=== PATIENT | female | born 1990 | race Two or more races ===

== ENCOUNTER 2016-12-16 11:27 | Emergency (ER) | payer SELFPAY ==
[~2016-12-16] VITALS: Ht 162.6 cm; Wt 53.1 kg
[2016-12-16 11:53] LABS: BASOPHILS # (AUTO) 0.1 /CMM (0.0-0.2); BASOPHILS % (AUTO) 0.9 % (0.0-2.0); DIFF TOTAL % 100 %; EOSINOPHILS # (AUTO) 0.1 /CMM (0.0-0.7); EOSINOPHILS % (AUTO) 0.8 % (0.0-6.0); HEMATOCRIT 40 % (33-45); HEMOGLOBIN 13.7 g/dL (11.5-14.8); LYMPHOCYTES # (AUTO) 0.9 /CMM (0.8-4.8); LYMPHOCYTES % (AUTO) 11.5 % (20.0-44.0); MEAN CORPUSCULAR HEMOGLOBIN 30 PG (26.0-33.0); MEAN CORPUSCULAR HGB CONC 34 g/dl (31.0-36.0); MEAN CORPUSCULAR VOLUME 88 fL (82-100); MONOCYTES # (AUTO) 0.3 /CMM (0.1-1.30); MONOCYTES % (AUTO) 3.4 % (2.0-12.0); NEUTROPHILS # (AUTO) 6.9 /CMM (1.8-8.9); NEUTROPHILS % (AUTO) 83.4 % (43.0-81.0); PLATELET COUNT (AUTO) 179 /CMM (150-450); WHITE BLOOD COUNT (AUTO) 8.3 K/uL (4.3-11.0)
[2016-12-16 12:06] LABS: CALCIUM, SERUM 8.3 mg/dL (8.5-10.1); CREATININE 0.7 mg/dL (0.6-1.3); POTASSIUM 3.6 mmol/L (3.5-5.1)
[2016-12-16 12:12] LABS: INR 0.95 (0.87-1.13)
[2016-12-16 12:44] VITALS: BP 129/70
== END 2016-12-16 12:45 | disposition home or self-care (01) ==
LOC: ER 11:30 → EDSEX 11:30 → ER 12:45
DX: N92.1 Excessive and frequent menstruation with irregular cycle (principal); F41.9 Anxiety disorder, unspecified
CPT/HCPCS: 36415; 76856; 80048; 84702; 84703; 85025; 85730; 86850; 99285; A4606; Z7610

== ENCOUNTER 2017-04-23 00:39 | Emergency (ER) | payer OTHER ==
[~2017-04-23] VITALS: Ht 162.6 cm; Wt 57.6 kg
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
[2017-04-23] MEDS ORDERED: FLUORESCEIN SODIUM OPHTH 1 EA STRIP ONE (01:33)
[2017-04-23] MEDS ORDERED: TETRACAINE HCL/PF 0.5% UD 2 ML BOTTLE ONE (01:33)
--- NOTE | 2017-04-23 01:35 | NUR ---
DR. PEGUERO AT BEDSIDE FOR EVAL.
--- NOTE | 2017-04-23 01:48 | NUR ---
PT TO CT.
--- NOTE | 2017-04-23 01:56 | NUR ---
PT RETURNED FROM CT.
[2017-04-23] MEDS ORDERED: FLUORESCEIN SODIUM OPHTH 1 EA STRIP OP ONE (02:00)
[2017-04-23] MEDS ORDERED: TETRACAINE HCL/PF 0.5% UD 2 ML BOTTLE RIGHTEYE ONE (02:00)
[2017-04-23] MEDS ORDERED: ACETAMINOPHEN ES 500 MG TABLET ONE (02:13)
--- NOTE | 2017-04-23 02:18 | NUR ---
VERBAL ORDERS PER DR. PEGUERO TO GIVE TYLENOL 1GM PO NOW ONE TIME. PT MEDICATED ORDERED.
--- NOTE | 2017-04-23 02:19 | NUR ---
DR. PEGUERO AT BEDSIDE FOR EYE EXAM.
[2017-04-23] MEDS ORDERED: MORPHINE SULFATE INJ 4 MG/ML DISP.SYRIN SQ ONE (02:30)
[2017-04-23] MEDS ORDERED: ONDANSETRON 4 MG TAB.RAPDIS SL ONE (02:30)
[2017-04-23] MEDS ORDERED: ACETAMINOPHEN 325 MG TABLET PO ONE (02:30)
[2017-04-23] MEDS ORDERED: CYCLOPENTOLATE 1% OPHTHALMIC 2 ML BOTTLE ONE (03:14)
[2017-04-23] MEDS ORDERED: GENTAMICIN OPTH SOLN 0.3% 5 ML BOTTLE OP ONE (03:30)
[2017-04-23] MEDS ORDERED: GENTAMICIN OPTH SOLN 0.3% 5 ML BOTTLE ONE (03:30)
[2017-04-23] MEDS ORDERED: CYCLOPENTOLATE 1% OPHTHALMIC 2 ML BOTTLE OP ONE (03:30)
--- NOTE | 2017-04-23 03:42 | NUR ---
Patient discharged to home in stable condition. Written and verbal after care instructions given. Patient verbalizes understanding of instruction. ambulatory with a steady gait. instructed pt not to drive. pt verbalize understanding.
[2017-04-23 03:43] VITALS: BP 116/78
== END 2017-04-23 03:45 | disposition home or self-care (01) ==
LOC: ER 00:42
DX: S05.01XA Injury of conjunctiva and corneal abrasion without foreign body, right eye, initial encounter (principal); H20.9 Unspecified iridocyclitis; Y04.2XXA Assault by strike against or bumped into by another person, initial encounter; Y93.89 Activity, other specified; Y92.89 Other specified places as the place of occurrence of the external cause; Y99.8 Other external cause status
CPT/HCPCS: 70480; 99284; A4606; Z7610

== ENCOUNTER 2017-04-26 21:18 | Emergency (ER) | payer OTHER ==
[~2017-04-26] VITALS: Ht 162.6 cm; Wt 54.4 kg
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
[2017-04-26] MEDS ORDERED: TETRACAINE HCL/PF 0.5% UD 2 ML BOTTLE ONE (22:15)
[2017-04-26] MEDS ORDERED: FLUORESCEIN SODIUM OPHTH 1 EA STRIP ONE (22:15)
[2017-04-26] MEDS: FLUORESCEIN SODIUM OPHTH 1 EA STRIP OP ONE (22:27)
[2017-04-26] MEDS: TETRACAINE HCL/PF 0.5% UD 2 ML BOTTLE RIGHTEYE ONE (22:28)
--- NOTE | 2017-04-26 22:35 | NUR ---
MAURO Cantrell at bedside for eye exam.
--- NOTE | 2017-04-26 23:04 | NUR ---
pt ambulatory w/ steady gait to visual acuity, resp even & unlabored w/ no active N/V at this time.
--- NOTE | 2017-04-26 23:08 | NUR ---
Patient discharged to home in stable condition. Written and verbal after care instructions given. Patient verbalizes understanding of instruction.
[2017-04-26 23:09] VITALS: BP 107/71
== END 2017-04-26 23:09 | disposition home or self-care (01) ==
LOC: ER 21:23
DX: H20.9 Unspecified iridocyclitis (principal); R11.0 Nausea; S00.11XD Contusion of right eyelid and periocular area, subsequent encounter; R42 Dizziness and giddiness; F41.9 Anxiety disorder, unspecified; X58.XXXD Exposure to other specified factors, subsequent encounter
CPT/HCPCS: A4606; Z7610

== ENCOUNTER 2017-06-09 16:38 | Emergency (ER) | payer MEDICAID, OTHER ==
[~2017-06-09] VITALS: Ht 162.6 cm; Wt 57.2 kg
--- NOTE | 2017-06-09 16:48 | NUR ---
CHEST DISCOMFORT X 5 DAYS, UNKNOWN ETIOLOGY. GOWNED PT . PLACED ON MONITOR. AWAITING MD ORDER.
--- NOTE | 2017-06-09 17:14 | NUR ---
PELVIC SETUP IN PLACED. TAMIE WADE AT BEDSIDE FOR EVAL
[2017-06-09 18:20] LABS: APPEARANCE,URINE Clear (CLEAR); BILIRUBIN,URINE Negative (NEGATIVE); BLOOD, URINE Negative Ery/uL (NEGATIVE); COLOR,URINE Yellow (YELLOW); KETONES,URINE Negative (NEGATIVE); LEUKOCYTE ESTERASE ,URINE Negative (NEGATIVE); NITRITE, URINE Negative (NEGATIVE); PROTEIN,URINE Negative (NEGATIVE); UGLUCOSE Negative (NEGATIVE); UROBILINOGEN,URINE 0.2 EU/dL (0.2)
[2017-06-09 18:21] LABS: PREGNANCY TEST URINE QUAL NEGATIVE (NEGATIVE)
--- NOTE | 2017-06-09 18:34 | NUR ---
Patient discharged to home in stable condition. Written and verbal after care instructions given. Patient verbalizes understanding of instruction.
[2017-06-09 18:35] VITALS: BP 120/74
[2017-06-12 05:10] LABS: *NEISSERIA GONORRHOEAE NAA Negative (Negative); CHLAMYDIA TRACHOMATIS NAA Negative (Negative)
== END 2017-06-09 18:36 | disposition home or self-care (01) ==
LOC: ER 16:41
DX: M94.0 Chondrocostal junction syndrome [Tietze] (principal); N76.0 Acute vaginitis; F41.9 Anxiety disorder, unspecified
CPT/HCPCS: 81001; 84703; 87210; 87491; 87591; 99284; A4606; Z7610; 81000-TC

== ENCOUNTER 2017-07-03 12:09 | Emergency (ER) | payer OTHER ==
[~2017-07-03] VITALS: Ht 162.6 cm; Wt 57.2 kg
[2017-07-03 12:18] VITALS: BP 107/80
[2017-07-03 13:03] LABS: APPEARANCE,URINE Clear (CLEAR); BILIRUBIN,URINE Negative (NEGATIVE); BLOOD, URINE Negative Ery/uL (NEGATIVE); COLOR,URINE Yellow (YELLOW); KETONES,URINE Negative (NEGATIVE); LEUKOCYTE ESTERASE ,URINE Negative (NEGATIVE); NITRITE, URINE Negative (NEGATIVE); PH,URINE 7.5 (5.0-8.0); PROTEIN,URINE Negative (NEGATIVE); UGLUCOSE Negative (NEGATIVE); UROBILINOGEN,URINE 0.2 EU/dL (0.2)
[2017-07-03 13:05] LABS: PREGNANCY TEST URINE QUAL NEGATIVE (NEGATIVE)
== END 2017-07-03 14:06 | disposition home or self-care (01) ==
LOC: ER 12:13
DX: N83.202 Unspecified ovarian cyst, left side (principal); F17.200 Nicotine dependence, unspecified, uncomplicated
CPT/HCPCS: 76856-TC; 81000-TC; 84703-TC; A4606; Z7610

== ENCOUNTER 2017-07-10 11:12 | Emergency (ER) | payer OTHER ==
[~2017-07-10] VITALS: Ht 162.6 cm; Wt 57.6 kg
--- NOTE | 2017-07-10 11:24 | NUR ---
PRESENTS SELF TO ED DT VAGINAL WHITISH DISHARGE AND ITCHYNESS X 2 DAYS. PT DENIES HEMATURIA NOR DYSURIA. SKIN IS WARM TO TOUCH AND NON DIAPHORETIC. AFEBRILE. VSS
--- NOTE | 2017-07-10 11:27 | NUR ---
URINE OUTPUT SENT TO LAB
[2017-07-10 12:14] LABS: APPEARANCE,URINE Cloudy (CLEAR); BILIRUBIN,URINE Negative (NEGATIVE); BLOOD, URINE Trace-lysed Ery/uL (NEGATIVE); COLOR,URINE Yellow (YELLOW); KETONES,URINE Negative (NEGATIVE); LEUKOCYTE ESTERASE ,URINE Large (NEGATIVE); NITRITE, URINE Negative (NEGATIVE); PH,URINE 7.5 (5.0-8.0); PROTEIN,URINE Negative (NEGATIVE); UGLUCOSE Negative (NEGATIVE); UROBILINOGEN,URINE 0.2 EU/dL (0.2)
[2017-07-10 12:15] LABS: PREGNANCY TEST URINE QUAL NEGATIVE (NEGATIVE)
[2017-07-10 12:22] LABS: BACTERIA,URINE Few /HPF (None Seen); SQUAMOUS EPITHELIAL CELL,UR Moderate /HPF (None Seen); WBC,URINE 20-30 /HPF (0-3)
[2017-07-10] MEDS ORDERED: CEFTRIAXONE 1 G VIAL IM ONE (14:30)
[2017-07-10] MEDS ORDERED: AZITHROMYCIN 250 MG TABLET PO ONE (14:30)
[2017-07-10] MEDS ORDERED: AZITHROMYCIN 250 MG TABLET ONE (14:33)
[2017-07-10] MEDS ORDERED: CEFTRIAXONE 1 G VIAL ONE (14:34)
[2017-07-10] MEDS ORDERED: LIDOCAINE /MPF 1% VIAL 5 ML VIAL ONE (14:34)
[2017-07-10 14:41] VITALS: BP 105/73
--- NOTE | 2017-07-10 14:42 | NUR ---
Patient discharged to home in stable condition. Written and verbal after care instructions given. Patient verbalizes understanding of instruction.
[2017-07-12 22:09] LABS: *NEISSERIA GONORRHOEAE NAA Negative (Negative); CHLAMYDIA TRACHOMATIS NAA Negative (Negative)
== END 2017-07-10 14:43 | disposition home or self-care (01) ==
LOC: ER 11:15
DX: N76.0 Acute vaginitis (principal); F17.200 Nicotine dependence, unspecified, uncomplicated
CPT/HCPCS: 81000-TC; 84703-TC; 87210-TC; 87491; 87591; A4606; J0696; J3490; Z7610